=== PATIENT | female | born 1940 | race Caucasian/White ===

== ENCOUNTER 2016-11-17 14:51 | Emergency (ER) | payer MEDICAID ==
[2016-11-17 15:45] LABS: BASOPHIL % 0.3 % (0-2); PLATELET COUNT 272 x10^3mcL (130-400); RED CELL DISTRIBUTION WIDTH 13.6 % (11.5-14.5)
[2016-11-17 15:47] LABS: CALCIUM 9.3 mg/dL (8.5-10.1); CARBON DIOXIDE 29.2 mmol/L (21-32); CHLORIDE SERUM 100 mmol/L (98-107); CREATININE SERUM 0.8 mg/dL (0.6-1.0); GLUCOSE SERUM 322 mg/dL (74-106); POTASSIUM SERUM 4.4 mmol/L (3.5-5.1); SODIUM SERUM 136 mmol/L (136-145)
[2016-11-17 15:52] LABS: ALBUMIN 3.6 g/dL (3.4-5.0); ALKALINE PHOSPHATASE 117 U/L (46-116); ALT/SGPT 21 U/L (14-59); AST/SGOT 16 U/L (15-37); BILIRUBIN TOTAL 0.41 mg/dL (0.20-1.00); LIPASE 127 IU/L (73-393); TOTAL PROTEIN, SERUM 7.9 g/dL (6.4-8.2)
[2016-11-17 16:09] LABS: UA SPECIFIC GRAVITY <=1.005 (1.005-1.035); microscopic required? YES; urine erythrocyte NEGATIVE (NEGATIVE)
[2016-11-17 17:26] VITALS: BP 156/74
== END 2016-11-17 17:26 | disposition home or self-care (01) ==
LOC: ED 14:51
PROVIDERS: Emergency Medicine
DX: M54.5 Low back pain (principal); E11.9 Type 2 diabetes mellitus without complications; I10 Essential (primary) hypertension; E78.00 Pure hypercholesterolemia, unspecified
CPT/HCPCS: 83880; J1885; J2270; J2405

== ENCOUNTER 2017-12-16 15:35 | Emergency (ER) | payer SELFPAY ==
[~2017-12-16] VITALS: Ht 157.5 cm; Wt 71.2 kg
[2017-12-16 15:42] VITALS: Ht 157.5 cm; Wt 71.2 kg
[2017-12-16 17:47] VITALS: BP 146/77
== END 2017-12-16 17:48 | disposition home or self-care (01) ==
LOC: ED 15:35
DX: M54.42 Lumbago with sciatica, left side (principal); E11.9 Type 2 diabetes mellitus without complications
CPT/HCPCS: J1885

== ENCOUNTER 2019-02-01 05:58 | Inpatient (IN) | payer MEDICAID ==
[~2019-02-01] VITALS: Ht 160 cm; Wt 68.1 kg
[2019-02-01 07:40] LABS: BASOPHIL % 0.1 % (0-2); PLATELET COUNT 240 x10^3mcL (130-400); RED CELL DISTRIBUTION WIDTH 14.5 % (11.5-14.5)
[2019-02-01 07:57] LABS: CALCIUM 8.1 mg/dL (8.5-10.1); CARBON DIOXIDE 28.5 mmol/L (21-32); CHLORIDE SERUM 98 mmol/L (98-107); CREATININE SERUM 0.8 mg/dL (0.6-1.0); GLUCOSE SERUM 190 mg/dL (74-106); POTASSIUM SERUM 3.6 mmol/L (3.5-5.1); SODIUM SERUM 135 mmol/L (136-145)
[2019-02-01 08:01] LABS: ALBUMIN 2.8 g/dL (3.4-5.0); ALKALINE PHOSPHATASE 94 U/L (46-116); ALT/SGPT 80 U/L (14-59); AST/SGOT 42 U/L (15-37); BILIRUBIN TOTAL 0.9 mg/dL (0.20-1.00); LIPASE 129 IU/L (73-393); TOTAL PROTEIN, SERUM 6.6 g/dL (6.4-8.2)
[2019-02-01 08:01] LABS: microscopic required? YES; urine erythrocyte TRACE (NEGATIVE)
[2019-02-01 10:36] LABS: CHOLESTEROL/HDL RATIO 2.9; MAGNESIUM 1.8 mg/dL (1.8-2.4); PHOSPHOROUS 2.3 mg/dL (2.5-4.9)
[2019-02-01 10:40] LABS: T3 TOTAL 0.97 ng/mL
[2019-02-01] MEDS ORDERED: PROZ20 PO (10:46)
[2019-02-01] MEDS ORDERED: CARVEDILOL6.25 M1 PO (10:47)
[2019-02-01] MEDS ORDERED: NOVOLIN 70/3010 ML SQ (10:48)
[2019-02-01] MEDS ORDERED: LIPI20 PO (10:48)
[2019-02-01 10:59] LABS: FREE T4 1.29 ng/dL (0.76-1.46); FREE THYROXINE INDEX 3.7 ug/dL (1.4-4.5); T4(THYROXINE) 9.3 ug/dL (4.7-13.3)
[2019-02-01 12:09] VITALS: BP 109/54
[2019-02-01 12:36] VITALS: BP 98/38
[2019-02-01 15:05] VITALS: BP 174/71
[2019-02-01 18:11] VITALS: BP 97/36
[2019-02-01 21:56] VITALS: BP 95/62
[2019-02-02 03:58] VITALS: BP 166/57
[2019-02-02 06:36] LABS: BASOPHIL % 0.1 % (0-2); PLATELET COUNT 176 x10^3mcL (130-400)
[2019-02-02 06:47] LABS: CALCIUM 7.5 mg/dL (8.5-10.1); CARBON DIOXIDE 22.8 mmol/L (21-32); CHLORIDE SERUM 97 mmol/L (98-107); CREATININE SERUM 0.8 mg/dL (0.6-1.0); GLUCOSE SERUM 238 mg/dL (74-106); POTASSIUM SERUM 3.7 mmol/L (3.5-5.1); SODIUM SERUM 131 mmol/L (136-145)
[2019-02-02 07:09] LABS: RED CELL DISTRIBUTION WIDTH 15.2 % (11.5-14.5)
[2019-02-02 09:27] VITALS: BP 100/41
[2019-02-02 12:42] VITALS: BP 127/46
[2019-02-02 16:34] VITALS: BP 135/53
[2019-02-02 18:30] VITALS: BP 135/53
[2019-02-02 20:55] VITALS: BP 126/53
[2019-02-03 05:46] VITALS: BP 128/50
[2019-02-03 06:34] LABS: BASOPHIL % 0.2 % (0-2); PLATELET COUNT 164 x10^3mcL (130-400)
[2019-02-03 06:40] LABS: RED CELL DISTRIBUTION WIDTH 14.8 % (11.5-14.5)
[2019-02-03 06:41] LABS: CALCIUM 8.1 mg/dL (8.5-10.1); CARBON DIOXIDE 27.9 mmol/L (21-32); CHLORIDE SERUM 101 mmol/L (98-107); CREATININE SERUM 0.6 mg/dL (0.6-1.0); GLUCOSE SERUM 163 mg/dL (74-106); POTASSIUM SERUM 3.8 mmol/L (3.5-5.1); SODIUM SERUM 136 mmol/L (136-145)
[2019-02-03 16:59] VITALS: BP 110/46
[2019-02-03 19:25] VITALS: BP 134/61
[2019-02-03 19:55] VITALS: BP 134/61
[2019-02-04 06:33] LABS: PLATELET COUNT 187 x10^3mcL (130-400)
[2019-02-04 06:36] VITALS: BP 153/62
[2019-02-04 06:54] LABS: CALCIUM 8.7 mg/dL (8.5-10.1); CARBON DIOXIDE 24.3 mmol/L (21-32); CHLORIDE SERUM 99 mmol/L (98-107); CREATININE SERUM 0.8 mg/dL (0.6-1.0); GLUCOSE SERUM 306 mg/dL (74-106); POTASSIUM SERUM 4.3 mmol/L (3.5-5.1); SODIUM SERUM 133 mmol/L (136-145)
[2019-02-04 07:35] LABS: BASOPHIL % 0 % (0-2); RED CELL DISTRIBUTION WIDTH 14.7 % (11.5-14.5)
[2019-02-04 09:00] VITALS: BP 112/73
[2019-02-04] MEDS ORDERED: MOT600 PO (10:11)
[2019-02-04] MEDS ORDERED: BACTRIM DS1 TAB PO (10:11)
[2019-02-04 11:52] VITALS: BP 112/73
[2019-02-04 12:52] VITALS: BP 122/39
== END 2019-02-04 16:02 | disposition home or self-care (01) | DRG 710 ==
LOC: ED 05:58 → DU 09:15
PROVIDERS: Emergency Medicine; Surgery; ADMIT Internal Medicine
PROC: 0FT44ZZ Resection of Gallbladder, Percutaneous Endoscopic Approach (ICD-10-PCS; principal; 2019-02-03 10:30)
DX: A41.9 Sepsis, unspecified organism (principal); N17.0 Acute kidney failure with tubular necrosis; N10 Acute pyelonephritis; K80.20 Calculus of gallbladder without cholecystitis without obstruction; E11.65 Type 2 diabetes mellitus with hyperglycemia; E66.9 Obesity, unspecified; Z95.5 Presence of coronary angioplasty implant and graft; Z79.84 Long term (current) use of oral hypoglycemic drugs
CPT/HCPCS: 82962; 84439; 97116-GP; C1758; G0378; J0330; J0696; J1815; J1885; J2270; J2405; J2704; J2710; J3010; J3490; J7030

== ENCOUNTER 2019-02-19 10:24 | Inpatient (IN) | payer MEDICAID ==
[~2019-02-19] VITALS: Ht 152.4 cm; Wt 69.9 kg
[~2019-02-19 10:24] MED LIST: BACTRIM DS1 TAB PO; CARVEDILOL6.25 M1 PO; LIPI20 PO; MOT600 PO; NOVOLIN 70/3010 ML SQ; PROZ20 PO
[2019-02-19 10:36] VITALS: Ht 152.4 cm; Wt 69.9 kg
--- NOTE | 2019-02-19 11:06 | NUR ---
PT TO ED FOR EVAL OF R FLANK PAIN SINCE AM. WORK UP WITH PAIN. PT DENIES ANY URINARY SYMPTOMS. RECENT LUCIO 2 WEEKS AGO. INCISION SITES APPEARS TO BE HEALING WELL. NO REDNESS, SWELLING, TENDERNESS, OR DISCAHRGE NOTED AT INCISION SITES. PT AWAKE AND ALERT. BREATHING EVEN UNLABORED. NO DISTRESS. MSE COMPLETED.
[2019-02-19 11:32] LABS: BASOPHIL % 0.5 % (0-2); PLATELET COUNT 372 x10^3mcL (130-400); RED CELL DISTRIBUTION WIDTH 14.3 % (11.5-14.5)
[2019-02-19 11:44] LABS: CALCIUM 8.8 mg/dL (8.5-10.1); CARBON DIOXIDE 30.4 mmol/L (21-32); CHLORIDE SERUM 95 mmol/L (98-107); CREATININE SERUM 0.8 mg/dL (0.6-1.0); GLUCOSE SERUM 282 mg/dL (74-106); POTASSIUM SERUM 3.9 mmol/L (3.5-5.1); SODIUM SERUM 132 mmol/L (136-145)
[2019-02-19 11:47] LABS: ALKALINE PHOSPHATASE 134 U/L (46-116); ALT/SGPT 18 U/L (14-59); AST/SGOT 25 U/L (15-37); BILIRUBIN TOTAL 0.55 mg/dL (0.20-1.00); LIPASE 158 IU/L (73-393); TOTAL PROTEIN, SERUM 7.7 g/dL (6.4-8.2)
[2019-02-19] MEDS ORDERED: INS7030 SQ (13:31)
[2019-02-19] MEDS ORDERED: CARVEDILOL6.25 M1 PO (13:32)
[2019-02-19] MEDS ORDERED: ATORVASTATIN (13:32)
[2019-02-19] MEDS ORDERED: FLUOXETINE HYDR20 M2 PO (13:32)
--- NOTE | 2019-02-19 13:40 | NUR ---
REPORT TO PRISCILLA MEGLAR TO ASSUME CARE OF PT.
--- NOTE | 2019-02-19 13:41 | NUR ---
REPORT TAKEN FROM OSCAR MELGAR IN ER, PATIENT TO BE BROUGHT TO UNIT VIA RNEY, ROOM PREP COMPLETE.
--- NOTE | 2019-02-19 13:57 | NUR ---
Total fluid resuscitation amount ordered for patient is 2000 mls. At time of admission/transfer to [facility], 100 mls have infused. Last BP was 136/53 and TALIA WELLS is aware that BP will need to be reassessed after fluid infusion completed.
[2019-02-19 15:02] VITALS: BP 146/75
--- NOTE | 2019-02-19 15:03 | NUR ---
B/P-146/75 AFTER THE SECOND BOLUS OF NS.
--- NOTE | 2019-02-19 15:15 | NUR ---
ADMIT FOR PYELONEPHRITIS, PT IS A/O X4, VERBAL RESPONSIVE. LUNG SOUND CLEAR BILATERAL, NO COUGH, NO SOB. PT DENY ANY CHEST PAIN OR DISCOMFORT. BOWEL SOUND PRESENT ALL 4 QUADRANTS, NO DISTENTION, PT C/O RIGHT FLANK PAIN 10/10, PEDAL PULSE PRESENT BOTH FEET, NO EDEMA, IV AT LEFT FA. NO LEAKING, NO INFILTRATION. PT HAS HEALING INCISION S/P LAP LUCIO AT ABD. NO BLEEDING, NO S/S OF INFECTION. ALL ADLS ASSIST, ALL NEED MET, CALL LIGHT IN REACH, WILL CONTINUE TO MONITOR.
[2019-02-19 16:50] VITALS: BP 140/53
--- NOTE | 2019-02-19 19:14 | NUR ---
REPORT GIVEN TO AUTOMATION TENDER NURSE, CARE ENDORSED
--- NOTE | 2019-02-19 19:20 | NUR ---
REC'D PT FROM DAY NURSE. DAUGHTER AT BEDSIDE. PT RESTING IN BED. AAOX4, SPEECH CLEAR, FOLLOWS COMMANDS. MED SURG, NO TELE. DENIES CP, DIZZINESS, OR PALPITATIONS. DENIES RESP DISTRESS OR SOB. BREATHING EVEN/UNLABORED ON 1L O2 VIA NC, SPO2 94%. NO EDEMA NOTED. ABD SOFT/ROUND. DENIES ABD PAIN, TENDERNESS, OR N/V. C/O MINIMAL R FLANK PAIN, TOLERABLE AT THIS TIME. REQUESTING PAIN MEDICATION WITH NIGHT MEDICATIONS. VOIDING FREELY. MILD GEN WEAKNESS. USES WALKER AT HOME. AMBULATORY. IV TO LFA PATENT AND INFUSING, SITE WNL. CALL LIGHT WITHIN REACH, BED AT LOWEST POSITION. WILL CONTINUE TO MONITOR.
[2019-02-19 20:27] VITALS: BP 121/51
[2019-02-19 20:59] LABS: microscopic required? YES; urine erythrocyte TRACE (NEGATIVE)
--- NOTE | 2019-02-19 21:03 | NUR ---
DR. DRIVER MADE AWARE OF POSITIVE UA RESULTS. PT ON MERREM. NO CHANGES IN ORDERS. URINE CULTURE PENDING.
--- NOTE | 2019-02-19 21:55 | NUR ---
PT C/O 6/10 R FLANK PAIN. NORCO GIVEN PER ORDER. DAUGHTER AT BEDSIDE ON RECLINER. WILL CONTINUE TO MONITOR.
--- NOTE | 2019-02-20 01:22 | NUR ---
PT RESTING IN BED WITH EYES CLOSED. NO SIGNS OF DISTRESS NOTED. BREATHING EVEN/UNLABORED ON 1L O2 VIA NC. CALL LIGHT WITHIN REACH, BED AT LOWEST POSITION. DAUGHTER AT BEDSIDE ON RECLINER. WILL CONTINUE TO MONITOR.
--- NOTE | 2019-02-20 02:14 | NUR ---
PT C/O R FLANK PAIN 09/02. NORCO GIVEN PER ORDER. WILL MONITOR FOR RELIEF.
--- NOTE | 2019-02-20 04:48 | NUR ---
PT C/O R FLANK PAIN 12/03. TORADOL GIVEN PER ORDER.
[2019-02-20 05:14] VITALS: BP 136/58
--- NOTE | 2019-02-20 05:42 | NUR ---
PT REPORTS MINIMAL R FLANK PAIN S/P TORADOL ADMINISTRATION. BREATHING EVEN/UNLABORED ON RA. NO SIGNIFICANT CHANGES DURING SHIFT. CALL LIGHT WITHIN REACH, BED AT LOWEST POSITION. WILL ENDORSE TO DAY NURSE.
[2019-02-20 06:24] LABS: BASOPHIL % 0.3 % (0-2); PLATELET COUNT 281 x10^3mcL (130-400)
[2019-02-20 06:25] LABS: CALCIUM 8.1 mg/dL (8.5-10.1); CARBON DIOXIDE 24.3 mmol/L (21-32); CHLORIDE SERUM 102 mmol/L (98-107); CREATININE SERUM 0.7 mg/dL (0.6-1.0); GLUCOSE SERUM 205 mg/dL (74-106); POTASSIUM SERUM 3.5 mmol/L (3.5-5.1); SODIUM SERUM 136 mmol/L (136-145)
[2019-02-20 06:38] LABS: RED CELL DISTRIBUTION WIDTH 14.6 % (11.5-14.5)
--- NOTE | 2019-02-20 08:03 | NUR ---
AT 0730 - RECEIVED PATIENT FROM NIGHT NURSE. AWAKE, ALERT AND APPEARS ORIENTED.SITTING ON SIDE OF BED EATING BREAKFAST. C/O SLIGHT PAIN IN R FLANK AND MODERATE HEADACHE. IV INFUSING NS AT 70 ML/HR. AT 0745 - MEDICATED WITH TYLANOL FOR HEADACHE.
[2019-02-20 08:51] VITALS: BP 135/62
--- NOTE | 2019-02-20 09:50 | NUR ---
REPORTS GOOD RELEIF OF HEADACHE WITH TYLANOL ADMINISTERED EARLIER. IV MERRIM NOW IN PROGRESS. PATIENT DENIES ANY DYSURIA - BURNING OR PAIN ON URINATION; REPROTS ONLY SLIGHT RIGHT FLANK PAIN.
--- NOTE | 2019-02-20 14:18 | NUR ---
AT 1140 - BLOOD GLUCOSE LEVEL 255. GIVEN 9 UNTIS REGULAR INSULINAS PER SLIDING SCALE. AT 1340 - HAS EATEN LUNCH. C/O HEADACHE. MEDICATED WITH NORCO PER EMAR.
--- NOTE | 2019-02-20 16:21 | NUR ---
PATIENT REPORTS THAT HEADACHES HAS SUBSIDED BUT C/O R FLANK PAIN. NOW MEDICATED WITH IV TORADOL PER EMAR. SPOKE WITH PATIENT AND DAUGHTER ABOUT PYELONEPHRITIS AND MEASURES TO TAKE IN REDUCING CHANCES OF DEVELOPING UTI.
[2019-02-20 16:41] VITALS: BP 141/40
--- NOTE | 2019-02-20 18:36 | NUR ---
AWAKE, ALERT AND ORIENTED. VSS. AFEBRILE. IV IFNUSING NS AT 70 ML/HR. PATIENT EATING A CCHO DIET. AMBULATES TO BATHROOM FOR TOILET NEEDS. PAIN APPEARS UNDER CONTROL AT THIS TIME. WILL ENDORSE CARE TO NIGHT NURSE.
--- NOTE | 2019-02-20 19:35 | NUR ---
RECEIVED PT FROM DAY SHIFT RN. PT AAOX4. PT DENIES CLAY/DIZZINESS. BREATHING EVEN AND UNLABORED ON RA, WITH NO SOB NOTED. ABD SOFT/ROUND ACTIVE BOWEL SOUNDS. DENIES ABD PAIN/N/V. IV LFA PATENT, INFUSING WELL. FAMILY AT BEDSIDE. PT DENIES PAIN/DISTRESS. CALL BUTTON WITHIN REACH. SAFETY PRECAUTIONS IN PLACE. WILL CONITNUE TO MONITOR.
[2019-02-20 20:08] VITALS: BP 139/51
--- NOTE | 2019-02-21 01:37 | NUR ---
ROUNDS MADE. PT RESTING. BREATHING EVEN AND UNLABORED NO SIGNS OF DISTRESS. IV PATENT, INFUSING WELL. CALL BUTTON WITHIN REACH. SAFETY PRECAUTIONS IN PLACE. WILL CONTINUE TO MONITOR.
--- NOTE | 2019-02-21 05:58 | NUR ---
PT SLEPT MOST OF THE NIGHT WITH NO SIGNS OF DISTRESS. IV PATENT, INFUSING WELL. BREATHING EVEN AND UNLABORED ON RA. WITH NO SOB NOTED. PT AMBULATORY WITH BRP, MINIMAL ASSIST. MEDICATED PER EMAR. PT REPORTED HAVING A CLAY, MEDICATED PER EMAR WITH RELIEF. CALL BUTTON WITHIN REACH. SAFETY PRECAUTIONS IN PLACE. FAMILY AT BEDSIDE. WILL CONTINUE TO MONITOR AND ENDORSE CARE TO DAY SHIFT RN.
[2019-02-21 06:17] VITALS: BP 134/58
[2019-02-21 06:27] LABS: CARBON DIOXIDE 24.1 mmol/L (21-32); CHLORIDE SERUM 101 mmol/L (98-107); CREATININE SERUM 0.7 mg/dL (0.6-1.0); GLUCOSE SERUM 215 mg/dL (74-106); POTASSIUM SERUM 3.3 mmol/L (3.5-5.1); SODIUM SERUM 135 mmol/L (136-145)
[2019-02-21 07:09] LABS: BASOPHIL % 0.4 % (0-2); PLATELET COUNT 255 x10^3mcL (130-400); RED CELL DISTRIBUTION WIDTH 14.1 % (11.5-14.5)
[2019-02-21 07:53] VITALS: BP 124/62
--- NOTE | 2019-02-21 08:43 | NUR ---
AAO TIMES 4. MED SURG PATIENT. LUNGS CTA. NO SOB. O2 SAT ON RA 94%. BS'S ACTIVE TIMES 4. LFA IV SITE CDI. PERIPHERAL PULSES PALPABLE. NO EDEMA. COOPERATIVE. FAMILY PRESENT, SUPPORTIVE. WHEN ASKED, SHE STATES SHE HAS SLIGHT PAIN 2/10 TO RLQ ABDOMEN. PERIPHERAL PULSES PALPABLE. NO EDEMA. NO SOB.
[2019-02-21] MEDS ORDERED: CIPRO500 MG PO (09:34)
[2019-02-21 12:05] VITALS: BP 124/62
--- NOTE | 2019-02-21 12:52 | NUR ---
GAVE DISCHARGE INSTRUCTIONS, AND PRESCRIPTION SENT TO HER DESIGNATED PHARMACY. I REMOVED HER SALINE LOCK, ANGIO INTACT. SHE AND HER FAMILY VERBALIZED "I UNDERSTAND" TO INSTRUCTIONS.
== END 2019-02-21 13:34 | disposition home or self-care (01) | DRG 720 ==
LOC: ED 10:24 → MU 12:36 → DU 12:36 → MU 14:10 → DU 14:13 → MU 17:23
PROVIDERS: Emergency Medicine; ADMIT Internal Medicine
DX: A41.9 Sepsis, unspecified organism (principal); E11.9 Type 2 diabetes mellitus without complications; N10 Acute pyelonephritis; I10 Essential (primary) hypertension; Z87.442 Personal history of urinary calculi; Z79.4 Long term (current) use of insulin
CPT/HCPCS: 82962; 90658; 90732; C9113; G0378; J0696; J1885; J2185; J2405; J7030; J7060

== ENCOUNTER 2019-07-02 12:37 | Emergency (ER) | payer MEDICAID ==
[~2019-07-02] VITALS: Ht 152.4 cm; Wt 80.3 kg
[~2019-07-02 12:37] MED LIST changes: +ATORVASTATIN; +CIPRO500 MG PO; +FLUOXETINE HYDR20 M2 PO; +INS7030 SQ
[2019-07-02 12:42] VITALS: Ht 152.4 cm; Wt 80.3 kg
[2019-07-02 15:31] VITALS: BP 136/41
== END 2019-07-02 15:31 | disposition home or self-care (01) ==
LOC: ED 12:37
DX: S93.04XA Dislocation of right ankle joint, initial encounter (principal); I10 Essential (primary) hypertension; E11.9 Type 2 diabetes mellitus without complications; Z87.442 Personal history of urinary calculi; W18.30XA Fall on same level, unspecified, initial encounter; Y93.89 Activity, other specified; Y92.89 Other specified places as the place of occurrence of the external cause; Y99.8 Other external cause status
CPT/HCPCS: J2405; J3010; J3490; J7030; Q0092; Q0162